=== PATIENT | female | born 1980 | race Caucasian/White ===

== ENCOUNTER 2020-12-08 08:47 | Emergency (ER) | payer OTHER, SELFPAY ==
--- NOTE | ~2020-12-08 | US_ITS ---
EXAMINATION: US VENOUS ULTRASOUND WITH DOPPLER LOWER EXTREMITY, LEFT CLINICAL INFORMATION: Pain and swelling. COMPARISON: None TECHNIQUE: Ultrasound of the deep veins is performed from the hip to the calf with compression sonography and color and pulse Doppler assessment. Spectral analysis with color-flow imaging is performed. FINDINGS: There is normal venous compression and respiratory variation and augmented flow. The visualized common femoral vein, superficial femoral vein, profunda femoral vein, popliteal vein, and the trifurcation region shows no evidence of deep venous thrombosis. There is no significant popliteal fossa cyst. If the patient's symptoms persist, followup ultrasound in 5 days 7 days might be of value to exclude proximal propagation from a non-visualized calf vein. US/US venous duplex LE LT IMPRESSION: No DVT demonstrated in the left lower extremity.
[2020-12-08 09:47] VITALS: BP 130/81; PULSE 75; RESP 18; TEMP 36.7; O2SAT 100; BMI 26.9
--- NOTE | 2020-12-08 10:19 | ED.EXTPRO ---
HPI - Extremity Problem General Chief complaint: Extremity Problem Stated complaint: lt leg swelling post vaccine Time Seen by Provider: 12/08/20 08:48 History of Present Illness HPI Narrative: Patient got COVID vaccine 10 days ago than a few days later started to develop pain mostly in the anterior right thigh but also some pain in the back of her leg both upper and lower, she has no difficulty breathing no fever no chills Related Data Allergies Allergy/AdvReac Type Severity Reaction Status Date / Time No Known Allergies Allergy Verified 12/08/20 09:47 [No Known Allergies*] PMFSH Social History Social History Advance Directives: No Advance Directives Information Provided: No Patient : No Physical Exam Vital Signs: Vital Signs: Last Vital Signs Temp 98.0 F 12/08/20 09:47 Pulse 75 12/08/20 09:47 Resp 18 12/08/20 09:47 BP 130/81 12/08/20 09:47 Pulse Ox 100 12/08/20 09:47 Body Mass Index 26.9 Discharge Plan Discharge Clinical Impression: Left leg pain Patient Disposition: Home, Self-Care Additional Instructions: Ultrasound test to rule out blood clot was normal there is no blood clot Exam showed normal pulse, normal nerve function normal skin no sign of any skin infection Return any time any worse condition or concerns Use Motrin or Tylenol as needed okay for all activity Stand Alone Forms: Work/School Release
== END 2020-12-08 10:29 | disposition home or self-care (01) ==
PROVIDERS: Emergency Provider Emergency Medicine; PCP Internal Medicine
DX: R60.0 Localized edema (principal); M79.605 Pain in left leg
CPT/HCPCS: 93971; 99283

== ENCOUNTER 2021-07-05 08:27 | Outpatient (REF) | payer OTHER, SELFPAY | END 2021-07-05 08:28 | disposition home or self-care (01) | LOC: HO.LAB 08:27 | PROVIDERS: Visit Provider Internal Medicine | DX: Z20.822 Contact with and (suspected) exposure to COVID-19 (principal) | CPT/HCPCS: C9803; U0003; U0005 ==

== ENCOUNTER 2021-11-23 15:51 | Outpatient (REF) | payer OTHER, SELFPAY ==
--- NOTE | ~2021-11-23 | MM_ITS ---
EXAMINATION: MM SCREENING DIGITAL BREAST TOMOSYNTHESIS, BILATERAL CLINICAL INFORMATION: Screening. Asymptomatic. No prior mammography. Age 41. No known family history breast cancer. The lifetime risk of breast cancer based on the Tyrer-Cuzick Model is 8%. COMPARISON: None (current study represents initial baseline exam). TECHNIQUE: Digital breast tomosynthesis is performed in both the craniocaudal and mediolateral oblique views along with computer-aided detection (CAD). Synthesized 2D images are generated from the tomosynthesis. FINDINGS: There are scattered areas of fibroglandular density (ACR BI-RADS breast composition Category b). There are no significant masses, abnormal calcifications, or other abnormalities. No architectural abnormality. Breast tissue composition borders on heterogeneously dense. There are bilateral incidental small low axillary nodes. The axilla and skin contours are unremarkable. MM/MM tomosynthesis screening BI IMPRESSION: No mammographic evidence of malignancy. ASSESSMENT: BI-RADS 2: Benign RECOMMENDATION: Routine annual mammography screening. This patient's information was entered into a reminder system with a target due date for their next mammogram.
== END 2021-11-23 15:52 | disposition home or self-care (01) ==
LOC: HO.MAMMO 15:51
PROVIDERS: Visit Provider Hospitalist
DX: Z12.31 Encounter for screening mammogram for malignant neoplasm of breast (principal)
CPT/HCPCS: 77063; 77067

== ENCOUNTER 2022-10-31 08:30 | Outpatient (REF) | payer OTHER, SELFPAY ==
[2022-10-31 11:43] LABS: Hematocrit 37.8 % (37.0-47.0); Hemoglobin 12.2 g/dl (12.0-16.0); Mean Corpuscular HGB Conc 32.3 g/dl (31.0-35.0); Mean Corpuscular Hemoglobin 27.5 pg (27.0-33.0); Mean Corpuscular Volume 85.1 fL (80.0-98.0); Mean Platelet Volume 9.7 fL (9.4-12.3); Platelet Count 254 X10*3/uL (160-400); Red Blood Count 4.44 X10*6/uL (4.20-5.50); White Blood Count 6.6 X10*3/uL (4.8-10.8)
[2022-10-31 12:21] LABS: Alanine Aminotransferase 17 U/L (0-31); Alkaline Phosphatase 38 U/L (39-117); Anion Gap 11 (12-20); Aspartate Amino Transferase 16 U/L (5-31); Bilirubin Total 0.4 mg/dL (0.0-1.0); Blood Urea Nitrogen 14 mg/dL (9-16); Calcium 8.5 mg/dL (8.4-10.2); Carbon Dioxide 24 mmol/L (22-29); Chloride 109 mmol/L (96-108); Cholesterol 155 mg/dL; Estimated Glomerular Filt Rate > 60; Glucose Fasting 86 mg/dL (60-99); HDL Cholesterol 48 mg/dL; LDL Cholesterol Calculated 99 mg/dl; Potassium 4.1 mmol/L (3.3-5.1); Sodium 140 mmol/L (135-145); Total Protein 6.4 g/dL (6.5-8.0); Triglycerides 40 mg/dL
[2022-10-31 12:39] LABS: TSH reflex Free T4 2.22 uIU/mL (0.32-4.0)
== END 2022-10-31 08:31 | disposition home or self-care (01) ==
LOC: HO.LAB 08:30
PROVIDERS: Visit Provider Hospitalist
DX: R10.30 Lower abdominal pain, unspecified (principal); R31.9 Hematuria, unspecified
CPT/HCPCS: 36415; 80053; 80061; 84443; 85027; 87086

== ENCOUNTER 2022-11-03 12:07 | Emergency (ER) | payer OTHER, SELFPAY ==
--- NOTE | ~2022-11-03 | CT_ITS ---
EXAMINATION: CT ABDOMEN AND PELVIS WITH CONTRAST CLINICAL INFORMATION: Abdominal pain COMPARISON: 02/05/2018 TECHNIQUE: Multidetector volumetric images were obtained from the superior aspect of the liver through the pubic symphysis following administration 85 mL of Omnipaque 350 intravenous contrast. Sagittal and coronal reformatted images were obtained on the technologist's workstation. Oral contrast: No This CT examination was performed using dose optimization techniques as appropriate, variously including the following: *Automated exposure control *Adjustment of mA and/or kV according to patient size (this includes techniques or standardized protocols for targeted exams where dose is matched to indication/reason for exam; i.e. extremities or head) *Use of iterative reconstruction technique DLP: 532 mGy-cm FINDINGS: LUNG BASES: The visualized lung bases are unremarkable. LIVER, GALLBLADDER, AND BILIARY TREE: The liver is normal in size, shape, and attenuation. No focal hepatic lesion or biliary ductal dilatation is present. The gallbladder is unremarkable with no evidence of radiopaque gallstones, gallbladder wall thickening, or obvious pericholecystic inflammatory changes. PANCREAS: Some fullness in the body the pancreas is noted. Similar to previous. SPLEEN: Unremarkable. ADRENAL GLANDS: Unremarkable. KIDNEYS AND URETERS: The kidneys are normal in size, shape, and attenuation. No hydronephrosis, hydroureter, or calculi seen. No perinephric stranding. BLADDER: Bladder is irregularly thick-walled. Appearance is similar to previous GASTROINTESTINAL TRACT: The bowel pattern is felt to be nonobstructing. The appendix is within normal limits. No suspicious fluid collection. ABDOMINAL WALL: No significant hernia is appreciated. LYMPH NODES: Mildly prominent iliac nodes are once again seen. No suspicious increase from previous. Mildly prominent mesenteric nodes. No bulky adenopathy. VASCULAR: Unremarkable. PELVIC VISCERA: Large uterine structure once again seen. Findings suggest possible fibroid change. Possible submucosal fibroid on the left. Polyp formation versus other cannot be excluded Mild cystic change in the ovaries. OSSEOUS STRUCTURES: Once again sclerotic change in the region of the SI joints consistent with sacroiliitis. No acute erosion or ankylosis. CT/CT abdomen pelvis w IV con IMPRESSION: There is no acute finding here. Enlarged probable fibroid uterus is noted measuring 10.3 x 9.1 x 10.4 cm. Enlarging compared to previous exam. Some filling defects within the canal are noted which could represent submucosal fibroids. Polyp formation or other endometrial growth cannot be excluded. Recommend gynecologic consultation. Once again irregular thick-walled bladder. Cystitis would be a consideration. The bowel pattern is felt to be nonobstructing. There is no free fluid. Other findings are as noted above. Fleischner guidelines were followed.
--- NOTE | ~2022-11-03 | US_ITS ---
EXAMINATION: US PELVIS CLINICAL INFORMATION: Abdominal pain. CT nodes enlarged uterus with probable fibroids. COMPARISON: CT abdomen and pelvis 11/03/2022 and 02/05/2018; pelvic ultrasound 02/05/2018. TECHNIQUE: Ultrasound of the pelvis is performed using both transabdominal and transvaginal transducers along with Doppler. Transvaginal imaging is performed due to inadequate visualization transabdominally. FINDINGS: Uterus: The uterus is anteverted and measures 14.0 x 5.8 x 8.3 cm. Volume 352 mL. Prior measurements ultrasound 02/05/2018: 12.1 x 4.3 x 7.5 cm. Volume 203 mL. There is heterogeneous myometrial echotexture with numerous fibroids consistent with the CT. They range from subserous to submucosal, largest 2 in each measure around 3 cm. There is no fluid in uterine cavity. The endometrial thickness is difficult to measure given the fibroids, suspect thickness around 1.6 cm. It would be difficult to discern superimposed endometrial polyp. Adnexa: The ovaries are normal in size. There is no adnexal mass or pelvic ascites. Right ovary measures 3.8 x 1.4 x 1.9 cm (volume 5.3 mL). There is incidental dominant follicle measuring under 1.5 cm. Left ovary measures 2.3 x 1.6 x 1.8 cm (volume 3.5 cm. US/US pelvic and transvaginal IMPRESSION: -Enlarged uterus with numerous fibroids, increased from prior imaging 2017. -Ovaries normal in size. No adnexal mass or pelvic ascites. -Routine nonemergent MRI pelvis without and with gadolinium contrast would be helpful to further characterize the fibroids and endometrium.
--- NOTE | 2022-11-03 12:08 | ED_ITS ---
HPI - General Adult General Chief complaint: Abdominal Pain <BAN Nelson Last Filed: 11/03/22 12:13> Stated complaint: abd pain <BAN Nelson Last Filed: 11/03/22 12:13> Time Seen by Provider: 11/03/22 12:40 <BAN Nelson Last Filed: 11/03/22 12:13> Source: patient, EMS, RN notes reviewed and old records reviewed <BAN Still Last Filed: 11/03/22 18:07> Mode of arrival: ambulatory <BAN Still Last Filed: 11/03/22 18:07> History of Present Illness HPI narrative: 42-year-old female with a past medical history tubal ligation, presenting to the ED complaining of intermittent epigastric abdominal pain radiating to LLQ & RLQ x2 weeks. Admits to mild dysuria. Reports initial diarrhea which has resolved. Denies fever, chills, nausea/vomiting, hematuria, vaginal bleeding/discharge <BAN Still - Last Filed: 11/03/22 18:07> Onset (ago): week(s) <BAN Still Last Filed: 11/03/22 18:07> Related Data Home medications: Home Medications Medication Instructions Recorded Confirmed No Known Home Meds 10/31/22 <BAN Nelson Last Filed: 11/03/22 12:13> Allergies/adverse reactions: Allergies Allergy/AdvReac Type Severity Reaction Status Date / Time No Known Allergies Allergy Verified 11/03/22 12:11 [No Known Allergies*] <BAN Nelson Last Filed: 11/03/22 12:13> Review of Systems Review of Systems: Constitutional: No Fever, No Chills, No Fatigue, No Malaise ENT/Mouth: No Hearing loss, No Ear Pain, No sore throat, No Rhinorrhea, No Swallowing Difficulty Eyes: No Eye Pain, No Swelling, No Redness, No Foreign Body, No Discharge, No Vision Changes Cardiovascular: No Chest Pain, No SOB, No Edema, No Palpitations Respiratory: No Cough, No Sputum, No Dyspnea Gastrointestinal: No Nausea, No Vomiting, + Diarrhea (resolved), No Constipation, + Abdominal pain, No Hematochezia, No Melena Genitourinary: No irregular bleeding, + Dysuria, No Urinary Frequency, No Hematuria, No Urinary Incontinence/retention, No Flank Pain Musculoskeletal: No joint pain, No Myalgias, No Joint Swelling Skin: No Skin Lesions, No rash Neuro: No Weakness, No Dizziness, No Headache <BAN Still - Last Filed: 11/03/22 18:07> Yes all other systems are reviewed and are negative <BAN Still - Last Filed: 11/03/22 18:07> Constitutional: Constitutional: Reports as per HPI <BAN Still - Last Filed: 11/03/22 18:07> [facility] Past Medical History Attestation statement: The following information was validated with the patient. <BAN Still - Last Filed: 11/03/22 18:07> Medical History: Medical History No pertinent past medical history <BAN Nelson - Last Filed: 11/03/22 12:13> Surgical History: Surgical History Hx of tubal ligation <BAN Nelson - Last Filed: 11/03/22 12:13> Family History Family History: Family History Mother Tachycardia Father Lung cancer Brother HTN (hypertension) <BAN Nelson - Last Filed: 11/03/22 12:13> Social History Social History: Social History Household Members: Spouse and Children Housing: Apartment Alcohol intake: never Patient Tobacco Use Status: Never used Tobacco Advance Directives: No Advance Directives Information Provided: No <BAN Nelson Last Filed: 11/03/22 12:13> Physical Exam ED Vital Signs: Vital Signs - 24 hr 11/03/22 12:12 Temperature 98 F Pulse Rate 85 Respiratory Rate 18 Blood Pressure 150/90 H Pulse Oximetry 100 Oxygen Delivery Method Room Air BMI result Body Mass Index 27.1 <BAN Nelson - Last Filed: 11/03/22 12:13> Vital Signs - 24 hr 11/03/22 12:12 Temperature 98 F Pulse Rate 85 Respiratory Rate 18 Blood Pressure 150/90 H Pulse Oximetry 100 Oxygen Delivery Method Room Air BMI result Body Mass Index 27.1 <BAN Still - Last Filed: 11/03/22 18:07> Const General: cooperative, healthy appearing and no acute distress <BAN Still - Last Filed: 11/03/22 18:07> Orientation/consciousness: patient oriented x3 <BAN Still - Last Filed: 11/03/22 18:07> Limitations: no limitations <BAN Still - Last Filed: 11/03/22 18:07> HENMT Head: Yes normal to inspection and Yes atraumatic <BAN Still - Last Filed: 11/03/22 18:07> Ears: hearing grossly normal bilaterally <BAN Still - Last Filed: 11/03/22 18:07> General nose exam: Normal external nose present <BNA Still - Last Filed: 11/03/22 18:07> Face and sinus: Yes normal facial exam <BAN Still - Last Filed: 11/03/22 18:07> Eyes General: appearance normal, both eyes and all related structures <BAN Still - Last Filed: 11/03/22 18:07> EOM: EOMs intact bilaterally <BAN Still - Last Filed: 11/03/22 18:07> Neck Neck: Yes normal visual inspection and Yes no meningeal signs <BAN Still - Last Filed: 11/03/22 18:07> Resp Effort & Inspection: normal respiratory effort and no respiratory distress <BAN Still - Last Filed: 11/03/22 18:07> Auscultation: clear to auscultation bilaterally <BAN Still - Last Filed: 11/03/22 18:07> Cardio Rate: regular rate <BAN Still - Last Filed: 11/03/22 18:07> Heart sounds: S1 normal heart sound present and S2 normal heart sound present <Isis Avilez PA - Last Filed: 11/03/22 18:07> GI Inspection: Yes normal to inspection <Isis Fatmata PA - Last Filed: 11/03/22 18:07> Palpation (GI): Soft to palpation, Tenderness to palpation present (GI) in the RLQ; with no rebound tenderness, no guarding and not rigid <Isis Avilez PA - Last Filed: 11/03/22 18:07> General: Yes no CVA tenderness <Isis Poulrobertot PA - Last Filed: 11/03/22 18:07> Back/Spine/Pelvis Back: no CVA tenderness <Isis Poulrobertot PA - Last Filed: 11/03/22 18:07> Skin Rashes: no rashes <Isis Avilez PA - Last Filed: 11/03/22 18:07> Wounds: no wounds <Isis Avilez PA - Last Filed: 11/03/22 18:07> Neuro General: patient oriented x3, tone normal and no meningeal signs <Isis Avilez PA - Last Filed: 11/03/22 18:07> Gait exam (Neuro): Normal gait present <Isis Avilez PA - Last Filed: 11/03/22 18:07> Extrem General: Yes normal to inspection <Isis Avilez PA - Last Filed: 11/03/22 18:07> Course Course Course Narrative: This is an RME: Additional HPI, ROS, PE not included below will be deferred to primary provider. 42 year old female presents with epigastric pain that radiates to her lower abdomen.Patient is severely tender in the RLQ to palpation. Patient denies associated fever, fatigue, malaise, chills. PE: RLQ tenderness Plan: Basic labs, UA, imaging <Charmaine Mayen PA - Last Filed: 11/03/22 12:13> This is an RME: Additional HPI, ROS, PE not included below will be deferred to primary provider. 42 year old female presents with epigastric pain that radiates to her lower abdomen.Patient is severely tender in the RLQ to palpation. Patient denies associated fever, fatigue, malaise, chills. PE: RLQ tenderness Plan: Basic labs, UA, imaging -1445--no leukocytosis. Labs otherwise unremarkable. negative. UA negative CT abdomen pelvis w IV con IMPRESSION: There is no acute finding here. ? Enlarged probable fibroid uterus is noted measuring 10.3 x 9.1 x 10.4 cm. Enlarging compared to previous exam. Some filling defects within the canal are noted which could represent submucosal fibroids. Polyp formation or other endometrial growth cannot be excluded. Recommend gynecologic consultation. ? Once again irregular thick-walled bladder. Cystitis would be a consideration. ? The bowel pattern is felt to be nonobstructing. There is no free fluid. ? Other findings are as noted above. ? Fleischner guidelines were followed. > will obtain pelvic ultrasound for further eval 1655--US pelvic and transvaginal IMPRESSION: -Enlarged uterus with numerous fibroids, increased from prior imaging 2018. ? -Ovaries normal in size.? No adnexal mass or pelvic ascites. ? -Routine nonemergent MRI pelvis without and with gadolinium contrast would be helpful to further characterize the fibroids and endometrium. >>Results discussed with patient including worrisome signs and symptoms and strict return precautions, and when to return to the emergency department. They verbalized understanding and feel safe for discharge at this time. <BAN Still - Last Filed: 11/03/22 18:07> Medications Administered Discontinued Medications Generic Name Dose Route Start Last Admin Trade Name Freq PRN Reason Stop Dose Admin Sodium Chloride 1,000 mls @ 999 mls/hr 11/03/22 13:00 11/03/22 15:18 Ns IV 11/03/22 14:00 Infused .Q1H1M OZZY Infusion Iohexol 100 ml 11/03/22 13:06 11/03/22 13:07 Iohexol 350 Mg/Ml 100 Ml Infus..Btl IV 11/03/22 13:07 85 ml ONCE ONE Administration <BAN Nelson - Last Filed: 11/03/22 12:13> Medications Administered Discontinued Medications Generic Name Dose Route Start Last Admin Trade Name Freq PRN Reason Stop Dose Admin Sodium Chloride 1,000 mls @ 999 mls/hr 11/03/22 13:00 11/03/22 15:18 Ns IV 11/03/22 14:00 Infused .Q1H1M OZZY Infusion Iohexol 100 ml 11/03/22 13:06 11/03/22 13:07 Iohexol 350 Mg/Ml 100 Ml Infus..Btl IV 11/03/22 13:07 85 ml ONCE ONE Administration <BAN Still - Last Filed: 11/03/22 18:07> Medical Decision Making Medical Decision Making MDM Narrative: 42-year-old female with a past medical history tubal ligation, presenting to the ED complaining of intermittent epigastric abdominal pain radiating to LLQ & RLQ x2 weeks. On exam vital signs stable, NAD, nontoxic appearing, RLQ tenderness noted, no rebound or guarding, no CVAT. Concern for appendicitis vs colitis/diverticulitis vs GERD/gastritis. Lower suspicion for ovarian torsi on/pyelo. Rule out UTI. Plan: Labs, UA, CT AP, IVF, pain control Please refer to course for remaining clinical decision making, interpretation of labs/imaging results, and discussions with consultants and/or family members. <BAN Still - Last Filed: 11/03/22 18:07> Differential Diagnosis Differential Diagnoses: The differential diagnosis associated with the presentation includes <BAN Still Last Filed: 11/03/22 18:07> As above <BAN Still - Last Filed: 11/03/22 18:07> Admission/Observation Consideration of admission/observation: Escalation of care including admission/observation considered <BAN Still Last Filed: 11/03/22 18:07> Lab Data [facility] Lab Attestation statement: I reviewed the patient's lab results. <BAN Still Last Filed: 11/03/22 18:07> Result Diagrams: 11/03/22 12:20 11/03/22 12:20 <BAN Nelson Last Filed: 11/03/22 12:13> Labs: Lab Results 11/03/22 11/03/22 11/03/22 Range/Units 12:20 12:20 12:20 WBC 7.8 (4.8-10.8) X10*3/uL RBC 4.43 (4.20-5.50) X10*6/uL Hgb 12.3 (12.0-16.0) g/dl Hct 38.0 (37.0-47.0) % MCV 85.8 (80.0-98.0) fL MCH 27.8 (27.0-33.0) pg MCHC 32.4 (31.0-35.0) g/dl RDW 15.8 (11.0-16.0) % Plt Count 277 (160-400) X10*3/uL MPV 9.1 L (9.4-12.3) fL Immature Gran % (Auto) 0.1 (0.0-0.4) % Neut % (Auto) 57.7 (45-73) % Lymph % (Auto) 33.3 (20-40) % [place] % (Auto) 6.8 (2-11) % Eos % (Auto) 1.5 (0-4) % Baso % (Auto) 0.6 (0-2) % Lymph # (Auto) 2.6 (1.2-4.9) X10*3/uL [place] # (Auto) 0.5 (0.1-1.2) X10*3/uL Eos # (Auto) 0.1 (0.0-0.4) X10*3/uL Baso # (Auto) 0.1 (0.0-0.2) X10*3/uL Abs Immat Gran (auto) 0.01 (0.00-0.03) X10*3/uL Absolute Neuts (auto) 4.5 (2.0-8.3) x10*3/uL Absolute Nucleated RBC 0.000 (0.0-0.012) X10*3/uL Nucleated RBC % (auto) 0.0 (0.0-0.2) /100WBC Sodium 137 (135-145) mmol/L Potassium 4.5 (3.3-5.1) mmol/L Chloride 108 (96-108) mmol/L Carbon Dioxide 26 (22-29) mmol/L Anion Gap 8 L (12-20) BUN 12 (9-16) mg/dL Creatinine 0.79 (0.5-1.4) mg/dL Estim Creat Clear Calc 82.5 Estimated GFR > 60 Random Glucose 86 (60-115) mg/dL Calcium 8.5 (8.4-10.2) mg/dL Magnesium 2.1 (1.6-2.6) mg/dL Total Bilirubin 0.3 (0.0-1.0) mg/dL AST 21 (5-31) U/L ALT 19 (0-31) U/L Alkaline Phosphatase 45 (39-117) U/L Total Protein 6.6 (6.5-8.0) g/dL Albumin 3.9 (3.5-5.0) g/dL Lipase 51 (8-78) U/L Beta HCG, Quant < 2 mIU/mL Urine Color Urine Appearance Urine pH (5.0-9.0) Ur Specific [place] (1.005-1.025) Urine Protein (Neg-Trace) mg/dL Urine Glucose (UA) (Negative) mg/dL Urine Ketones (Negative) mg/dL Urine Blood (Negative) Urine Nitrite (Negative) Ur Leukocyte Esterase (Negative) 11/03/22 Range/Units 13:08 WBC (4.8-10.8) X10*3/uL RBC (4.20-5.50) X10*6/uL Hgb (12.0-16.0) g/dl Hct (37.0-47.0) % MCV (80.0-98.0) fL MCH (27.0-33.0) pg MCHC (31.0-35.0) g/dl RDW (11.0-16.0) % Plt Count (160-400) X10*3/uL MPV (9.4-12.3) fL Immature Gran % (Auto) (0.0-0.4) % Neut % (Auto) (45-73) % Lymph % (Auto) (20-40) % [place] % (Auto) (2-11) % Eos % (Auto) (0-4) % Baso % (Auto) (0-2) % Lymph # (Auto) (1.2-4.9) X10*3/uL [place] # (Auto) (0.1-1.2) X10*3/uL Eos # (Auto) (0.0-0.4) X10*3/uL Baso # (Auto) (0.0-0.2) X10*3/uL Abs Immat Gran (auto) (0.00-0.03) X10*3/uL Absolute Neuts (auto) (2.0-8.3) x10*3/uL Absolute Nucleated RBC (0.0-0.012) X10*3/uL Nucleated RBC % (auto) (0.0-0.2) /100WBC Sodium (135-145) mmol/L Potassium (3.3-5.1) mmol/L Chloride (96-108) mmol/L Carbon Dioxide (22-29) mmol/L Anion Gap (12-20) BUN (9-16) mg/dL Creatinine (0.5-1.4) mg/dL Estim Creat Clear Calc Estimated GFR Random Glucose (60-115) mg/dL Calcium (8.4-10.2) mg/dL Magnesium (1.6-2.6) mg/dL Total Bilirubin (0.0-1.0) mg/dL AST (5-31) U/L ALT (0-31) U/L Alkaline Phosphatase (39-117) U/L Total Protein (6.5-8.0) g/dL Albumin (3.5-5.0) g/dL Lipase (8-78) U/L Beta HCG, Quant mIU/mL Urine Color Yellow Urine Appearance Clear Urine pH 7.5 (5.0-9.0) Ur Specific [place] <= 1.005 (1.005-1.025) Urine Protein Negative (Neg-Trace) mg/dL Urine Glucose (UA) Negative (Negative) mg/dL Urine Ketones Negative (Negative) mg/dL Urine Blood Negative (Negative) Urine Nitrite Negative (Negative) Ur Leukocyte Esterase Negative (Negative) <BAN Nelson - Last Filed: 11/03/22 12:13> Lab Results 11/03/22 11/03/22 11/03/22 Range/Units 12:20 12:20 12:20 WBC 7.8 (4.8-10.8) X10*3/uL RBC 4.43 (4.20-5.50) X10*6/uL Hgb 12.3 (12.0-16.0) g/dl Hct 38.0 (37.0-47.0) % MCV 85.8 (80.0-98.0) fL MCH 27.8 (27.0-33.0) pg MCHC 32.4 (31.0-35.0) g/dl RDW 15.8 (11.0-16.0) % Plt Count 277 (160-400) X10*3/uL MPV 9.1 L (9.4-12.3) fL Immature Gran % (Auto) 0.1 (0.0-0.4) % Neut % (Auto) 57.7 (45-73) % Lymph % (Auto) 33.3 (20-40) % [place] % (Auto) 6.8 (2-11) % Eos % (Auto) 1.5 (0-4) % Baso % (Auto) 0.6 (0-2) % Lymph # (Auto) 2.6 (1.2-4.9) X10*3/uL [place] # (Auto) 0.5 (0.1-1.2) X10*3/uL Eos # (Auto) 0.1 (0.0-0.4) X10*3/uL Baso # (Auto) 0.1 (0.0-0.2) X10*3/uL Abs Immat Gran (auto) 0.01 (0.00-0.03) X10*3/uL Absolute Neuts (auto) 4.5 (2.0-8.3) x10*3/uL Absolute Nucleated RBC 0.000 (0.0-0.012) X10*3/uL Nucleated RBC % (auto) 0.0 (0.0-0.2) /100WBC Sodium 137 (135-145) mmol/L Potassium 4.5 (3.3-5.1) mmol/L Chloride 108 (96-108) mmol/L Carbon Dioxide 26 (22-29) mmol/L Anion Gap 8 L (12-20) BUN 12 (9-16) mg/dL Creatinine 0.79 (0.5-1.4) mg/dL Estim Creat Clear Calc 82.5 Estimated GFR > 60 Random Glucose 86 (60-115) mg/dL Calcium 8.5 (8.4-10.2) mg/dL Magnesium 2.1 (1.6-2.6) mg/dL Total Bilirubin 0.3 (0.0-1.0) mg/dL AST 21 (5-31) U/L ALT 19 (0-31) U/L Alkaline Phosphatase 45 (39-117) U/L Total Protein 6.6 (6.5-8.0) g/dL Albumin 3.9 (3.5-5.0) g/dL Lipase 51 (8-78) U/L Beta HCG, Quant < 2 mIU/mL Urine Color Urine Appearance Urine pH (5.0-9.0) Ur Specific [place] (1.005-1.025) Urine Protein (Neg-Trace) mg/dL Urine Glucose (UA) (Negative) mg/dL Urine Ketones (Negative) mg/dL Urine Blood (Negative) Urine Nitrite (Negative) Ur Leukocyte Esterase (Negative) 11/03/22 Range/Units 13:08 WBC (4.8-10.8) X10*3/uL RBC (4.20-5.50) X10*6/uL Hgb (12.0-16.0) g/dl Hct (37.0-47.0) % MCV (80.0-98.0) fL MCH (27.0-33.0) pg MCHC (31.0-35.0) g/dl RDW (11.0-16.0) % Plt Count (160-400) X10*3/uL MPV (9.4-12.3) fL Immature Gran % (Auto) (0.0-0.4) % Neut % (Auto) (45-73) % Lymph % (Auto) (20-40) % [place] % (Auto) (2-11) % Eos % (Auto) (0-4) % Baso % (Auto) (0-2) % Lymph # (Auto) (1.2-4.9) X10*3/uL [place] # (Auto) (0.1-1.2) X10*3/uL Eos # (Auto) (0.0-0.4) X10*3/uL Baso # (Auto) (0.0-0.2) X10*3/uL Abs Immat Gran (auto) (0.00-0.03) X10*3/uL Absolute Neuts (auto) (2.0-8.3) x10*3/uL Absolute Nucleated RBC (0.0-0.012) X10*3/uL Nucleated RBC % (auto) (0.0-0.2) /100WBC Sodium (135-145) mmol/L Potassium (3.3-5.1) mmol/L Chloride (96-108) mmol/L Carbon Dioxide (22-29) mmol/L Anion Gap (12-20) BUN (9-16) mg/dL Creatinine (0.5-1.4) mg/dL Estim Creat Clear Calc Estimated GFR Random Glucose (60-115) mg/dL Calcium (8.4-10.2) mg/dL Magnesium (1.6-2.6) mg/dL Total Bilirubin (0.0-1.0) mg/dL AST (5-31) U/L ALT (0-31) U/L Alkaline Phosphatase (39-117) U/L Total Protein (6.5-8.0) g/dL Albumin (3.5-5.0) g/dL Lipase (8-78) U/L Beta HCG, Quant mIU/mL Urine Color Yellow Urine Appearance Clear Urine pH 7.5 (5.0-9.0) Ur Specific [place] <= 1.005 (1.005-1.025) Urine Protein Negative (Neg-Trace) mg/dL Urine Glucose (UA) Negative (Negative) mg/dL Urine Ketones Negative (Negative) mg/dL Urine Blood Negative (Negative) Urine Nitrite Negative (Negative) Ur Leukocyte Esterase Negative (Negative) <BAN Still - Last Filed: 11/03/22 18:07> Radiology Impression Discussion of test interpretation with radiology: I have reviewed the radiologist's reading. <BAN Still - Last Filed: 11/03/22 18:07> External Record Review External record reviewed: Inpatient record, Office record, Outpatient record, Prior outpatient labs, Prior outpatient radiology, Primary care record and Outside ED record <BAN Still - Last Filed: 11/03/22 18:07> Discharge Plan Discharge Clinical Impression: Uterine fibroid <BAN Nelson - Last Filed: 11/03/22 12:13> Patient Disposition: Home, Self-Care <BAN Nelson - Last Filed: 11/03/22 12:13> Instructions: Uterine Artery Embolization for Fibroids (DC) <BAN Nelson - Last Filed: 11/03/22 12:13> Additional Instructions: Your ultrasound appreciates numerous uterine fibroids which are increasing in size from prior imaging in 2018 WE RECOMMENDED NONEMERGENT MRI OF THE PELVIS WITH AND WITHOUT CONTRAST TO FURTHER EVALUATE THESE FIBROIDS You need to follow-up with your PCP If her abdominal pain persists or worsens/becomes unbearable, you are unable to eat or drink have persistent nausea/vomiting or fever return to the emergency department Your blood work was reassuring <BAN Nelson - Last Filed: 11/03/22 12:13> Prescriptions: No Action No Known Home Meds <BAN Nelson - Last Filed: 11/03/22 12:13> Referrals: [facility] [place] [facility] [Provider Group] Zonia Hawley NP [Primary Care Provider] - <BAN Nelson - Last Filed: 11/03/22 12:13> Stand Alone Forms: Work/School Release <BAN Nelson - Last Filed: 11/03/22 12:13> Interventions: ED Discharge Assessment Last Done: 11/03/22 17:14 <BAN Nelson - Last Filed: 11/03/22 12:13> Discharge Date/Time: 11/03/22 17:14 <BAN Nelson - Last Filed: 11/03/22 12:13>
[2022-11-03 12:12] VITALS: BP 150/90; PULSE 85; RESP 18; TEMP 36.6; O2SAT 100; BMI 27.1
[2022-11-03 12:27] LABS: MANUAL DIFF FLAG NO
[2022-11-03 12:30] LABS: Basophils Absolute Auto 0.1 X10*3/uL (0.0-0.2); Basophils Percent Auto 0.6 % (0-2); Eosinophils Absolute Auto 0.1 X10*3/uL (0.0-0.4); Eosinophils Percent Auto 1.5 % (0-4); Hemoglobin 12.3 g/dl (12.0-16.0); Imm Gran Abs Auto 0.01 X10*3/uL (0.00-0.03); Imm Gran Pct Auto 0.1 % (0.0-0.4); Lymphocytes Absolute Auto 2.6 X10*3/uL (1.2-4.9); Lymphocytes Percent Auto 33.3 % (20-40); Mean Corpuscular HGB Conc 32.4 g/dl (31.0-35.0); Mean Corpuscular Hemoglobin 27.8 pg (27.0-33.0); Mean Corpuscular Volume 85.8 fL (80.0-98.0); Mean Platelet Volume 9.1 fL (9.4-12.3); Monocytes Absolute Auto 0.5 X10*3/uL (0.1-1.2); Monocytes Percent Auto 6.8 % (2-11); Neutrophils Absolute Auto 4.5 x10*3/uL (2.0-8.3); Neutrophils Percent Auto 57.7 % (45-73); Platelet Count 277 X10*3/uL (160-400); Red Blood Count 4.43 X10*6/uL (4.20-5.50); Red Cell Distribution Width 15.8 % (11.0-16.0); White Blood Count 7.8 X10*3/uL (4.8-10.8)
[2022-11-03 12:53] LABS: HCG Quantitative < 2 mIU/mL
[2022-11-03 12:55] LABS: Alanine Aminotransferase 19 U/L (0-31); Albumin Level 3.9 g/dL (3.5-5.0); Alkaline Phosphatase 45 U/L (39-117); Aspartate Amino Transferase 21 U/L (5-31); Bilirubin Total 0.3 mg/dL (0.0-1.0); Blood Urea Nitrogen 12 mg/dL (9-16); Calcium 8.5 mg/dL (8.4-10.2); Carbon Dioxide 26 mmol/L (22-29); Chloride 108 mmol/L (96-108); Creatinine Clr Calc Pharmacy 82.5; Estimated Glomerular Filt Rate > 60; Glucose Random 86 mg/dL (60-115); Lipase 51 U/L (8-78); Magnesium 2.1 mg/dL (1.6-2.6); Potassium 4.5 mmol/L (3.3-5.1); Sodium 137 mmol/L (135-145); Total Protein 6.6 g/dL (6.5-8.0)
[2022-11-03 12:56] LABS: Anion Gap 8 (12-20)
[2022-11-03] MEDS: 0.9 % Sodium Chloride 1,000 ML 999 ML IV (13:04)
[2022-11-03] MEDS: iohexoL 350 MG/ML 100 ML INFUS..BTL IV (13:07)
[2022-11-03 13:15] LABS: Appearance Urine Clear; Color Urine Yellow; Glucose Urine UA Negative (Negative); Leukocyte Esterase Urine Negative (Negative); Nitrite Urine Negative (Negative); PH 7.5 (5.0-9.0); Specific Gravity - Urine <= 1.005 (1.005-1.025); Urine Blood Negative (Negative); Urine Ketones Negative (Negative); Urine Protein Negative (Neg-Trace)
--- NOTE | 2022-11-03 13:53 | PC.NURSE ---
ct scan taken, 1L NS infusing per orders, pt given warm blankets, call [facility] within reach [facility]
== END 2022-11-03 17:14 | disposition home or self-care (01) ==
PROVIDERS: Physician Assistant; Emergency Provider Emergency Medicine; PCP Hospitalist
DX: D25.0 Submucous leiomyoma of uterus (principal); D25.2 Subserosal leiomyoma of uterus; R10.30 Lower abdominal pain, unspecified; N88.8 Other specified noninflammatory disorders of cervix uteri
CPT/HCPCS: 36415; 74177; 76830; 76856; 80053; 81003; 83690; 83735; 84702; 85025; 96360; 96361; 99284; Q9967

== ENCOUNTER 2022-11-15 10:42 | Outpatient (REF) | payer OTHER, SELFPAY ==
[2022-11-16 23:33] LABS: HPV mRNA E6/E7 rflx Not Detected (Not Detected)
== END 2022-11-15 10:43 | disposition home or self-care (01) ==
LOC: HO.LNP 10:42
PROVIDERS: PCP Hospitalist; Visit Provider Obstetrics & Gynecology
DX: D25.9 Leiomyoma of uterus, unspecified (principal); N93.9 Abnormal uterine and vaginal bleeding, unspecified
CPT/HCPCS: 87624; 88142; 99202

== ENCOUNTER 2022-11-15 11:25 | Outpatient (REF) | payer OTHER, SELFPAY ==
[2022-11-15 13:22] LABS: Mean Corpuscular HGB Conc 31.6 g/dl (31.0-35.0); Mean Corpuscular Hemoglobin 27.1 pg (27.0-33.0); Mean Corpuscular Volume 85.8 fL (80.0-98.0); Mean Platelet Volume 9.6 fL (9.4-12.3); Platelet Count 261 X10*3/uL (160-400); Red Blood Count 4.43 X10*6/uL (4.20-5.50); White Blood Count 5.8 X10*3/uL (4.8-10.8)
[2022-11-15 14:37] LABS: HCG Quantitative < 2 mIU/mL; TSH reflex Free T4 1.42 uIU/mL (0.32-4.0)
[2022-11-15 14:45] LABS: CT PCR NOT DETECTED (Not Detect.); NG PCR NOT DETECTED (Not Detect.)
[2022-11-17 08:29] LABS: Prolactin 7.1 ng/mL
== END 2022-11-15 11:26 | disposition home or self-care (01) ==
LOC: HO.LAB 11:25
PROVIDERS: PCP Hospitalist; Visit Provider Obstetrics & Gynecology
DX: N93.9 Abnormal uterine and vaginal bleeding, unspecified (principal); Z20.2 Contact with and (suspected) exposure to infections with a predominantly sexual mode of transmission
CPT/HCPCS: 0353U; 36415; 84146; 84443; 84702; 85027

== ENCOUNTER 2022-12-19 12:35 | Outpatient (REF) | payer OTHER, SELFPAY | END 2022-12-19 12:36 | disposition home or self-care (01) | LOC: HO.LNP 12:35 | PROVIDERS: PCP Hospitalist; Visit Provider Obstetrics & Gynecology | DX: N93.9 Abnormal uterine and vaginal bleeding, unspecified (principal) | CPT/HCPCS: 58100; 81025; 88305 ==

== ENCOUNTER 2022-12-27 13:17 | Outpatient (REF) | payer OTHER, SELFPAY ==
--- NOTE | ~2022-12-27 | MM_ITS ---
EXAMINATION: MM SCREENING DIGITAL BREAST TOMOSYNTHESIS, BILATERAL CLINICAL INFORMATION: Screening. Asymptomatic. The lifetime risk of breast cancer based on the Tyrer-Cuzick Model is 8%. COMPARISON: Mammography: 11/23/2021 (baseline). TECHNIQUE: Digital breast tomosynthesis is performed in both the craniocaudal and mediolateral oblique views along with computer-aided detection (CAD). Synthesized 2D images are generated from the tomosynthesis. FINDINGS: There are scattered areas of fibroglandular density (ACR BI-RADS breast composition Category b). There are no significant masses, abnormal calcifications, or other abnormalities. Parenchymal pattern is similar to prior baseline exam. There is no developing density or architectural abnormality. The axilla and skin contours are unremarkable. No significant changes. MM/MM tomosynthesis screening BI IMPRESSION: No mammographic evidence of malignancy. ASSESSMENT: BI-RADS 1: Negative RECOMMENDATION: Routine annual mammography screening. This patient's information was entered into a reminder system with a target due date for their next mammogram.
== END 2022-12-27 13:18 | disposition home or self-care (01) ==
LOC: HO.MAMMO 13:17
PROVIDERS: PCP Hospitalist; Visit Provider Obstetrics & Gynecology
DX: Z12.31 Encounter for screening mammogram for malignant neoplasm of breast (principal)
CPT/HCPCS: 77063; 77067

== ENCOUNTER → 2023-01-12 08:46 | Outpatient (BNVA) | payer OTHER, SELFPAY | PROVIDERS: PCP Hospitalist; Visit Provider Obstetrics & Gynecology | DX: N93.9 Abnormal uterine and vaginal bleeding, unspecified (principal); D25.9 Leiomyoma of uterus, unspecified | CPT/HCPCS: 99212 ==

== ENCOUNTER 2023-01-17 13:05 | Outpatient (AMB) | payer OTHER, SELFPAY ==
--- NOTE | 2023-01-17 13:02 | MHC.PC.OV ---
Vital Signs 01/17/23 13:14 Height 5 ft 2 in Weight 153 lb 2 oz BMI 28.0 BP 110/64 Blood Pressure Location Rt brachial Position Sitting Respiration 12 Pulse 72 Pulse Source Pulse Oximeter Temp 98.3 F Temp Source Temporal Artery Scan Pulse Oximetry (%) 99 Oxygen Delivery Method Room Air Intake Visit Reasons: [place]/ 7-6/Right rib pain Intake Note: Patient states that shes been to ER and they haven't found anything wrong. Patient has fibroids and has been experiencing pain. Patient states that she went [facility] and was told that she will be having a IUD put in. Patient states that shes here because she suppose to start work tomorrow but with everything new going on and her job requiring her to due heavy lifting she would like to extend her Medical Leave. Director Gift Required: No Accompanied by: Self / Same As Patient Allergies No Known Allergies [No Known Allergies*] Allergy (Verified 01/17/23 13:42) Medication List - Last Reconciled 01/17/23 by Christian Frye CNP No Known Home Meds Tobacco use date assessed: 10/31/22 Dental Screening Dental Screen Date: 01/17/23 Did you have a dental visit in the last 12 months?: No Did you have a dental problem in the last 6 months where you did not have access to dental care?: No HPI HPI Comments History of Present Illness Details 42-year-old female presents for abdominal pain related to uterine fibroids follow-up She is followed by Gynecology. She notes the plan is to have an IUD inserted She was placed on light duty by PCP for 2-4 weeks. 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 which intensifies her stomach pain PFS Medical History (Updated 01/17/23 @ 13:24 by Justina Hardwick MA) Fibroids No pertinent past medical history Surgical History Hx of tubal ligation Family History Mother Tachycardia Father Lung cancer Brother HTN (hypertension) Social History (Updated 01/17/23 @ 13:29 by Justina Hardwick MA) Household Members: Spouse and Children Housing: House Alcohol intake: never Patient Tobacco Use Status: Never used Tobacco e-Cigarette/Vaping Use: Never Used Use of substances other than those prescribed or required for medical reasons: No Currently Displaying Signs/Symptoms of Drug Intoxication Withdrawal: No Any prior treatment program specific to substance use: No Have you been hit, kicked, punched, or otherwise hurt by someone within the past year? If so, by whom?: No Do you feel safe in your current relationship?: Yes Is there a partner from a previous relationship who is making you feel unsafe now?: No Are you made to feel afraid or neglected: No Special laurie needs: No Are you DNR?: No Advance Directives: No Healthcare Proxy: No Access to Firearms: No Do you have thoughts of harming others: None Do you have a plan to hurt others: No Plan Do you have the means to hurt others: No Recently lost weight without trying: No Eating poorly because of decreased appetite: No Nutrition Risks: No Nutritional Risk Patient : No : No Visits dentist regularly: No Poor oral hygiene: No service: No Current occupational status: employed Current occupation: employee training specialist/ welfare case worker Current occupational exposures/hazards: No Sexually active: Yes Sexual orientation: Straight/Heterosexual Gender identity: Female Cognitive needs: No Hearing needs: No Vision needs: No Female Reproductive History Menstrual Age of Menarche: 12 Questionnaire Thrive Questionnaire Date Thrive assessed: 10/31/22 CINDY-7 AMB Questionnaire CINDY-7 Date CINDY - 7 assessed: 10/31/22 Source: Developed by Drs. Jossue Martinez, Laura Bone, Cruzito Barrera and colleagues, with an educational kareen from [employer]. Review of Systems Const Details: Const Denies chills, Denies fatigue, Denies fever(s), Denies headache(s) and Denies weakness ENT Denies dizziness and Denies headache(s) Card Denies chest pain, Denies lightheadedness, Denies dyspnea and Denies other (Palpitations) Resp Denies cough, Denies dyspnea, Denies wheezing and Denies other ( shortness of breath) GI Reports abdominal pain, Denies melena, Denies hematochezia, Denies change in bowel habits, Denies dyspepsia and Denies nausea Denies hematuria and Denies dysuria Musc Denies abnormal gait, Denies myalgias, Denies arthralgias, Denies numbness and Denies tingling Skin/Breast Denies rash, Denies unusual bruising and Denies wounds Neuro Denies abnormal gait, Denies dizziness, Denies headache(s), Denies memory loss, Denies numbness, Denies Sensory deficit (Neuro), Denies tingling and Denies weakness Endo Denies fatigue Aller/Immun Denies wheezing Physical exam (Primary Care) Vital Signs: Last Vital Signs Temp 98.3 F 01/17/23 13:14 Pulse 72 01/17/23 13:14 Resp 12 01/17/23 13:14 BP 110/64 01/17/23 13:14 Pulse Ox 99 01/17/23 13:14 Oxygen Delivery Method Room Air 01/17/23 13:14 BMI result Body Mass Index 28.0 Tobacco/Smoking Status: Tobacco use Status Tobacco use date assessed 10/31/22 01/17/23 13:06 Patient Tobacco Use Status Never used Tobacco 01/17/23 13:29 e-Cigarette/Vaping Use Never Used 01/17/23 13:29 Thrive Assessment: Date of Thrive Assessment Date Thrive assessed 10/31/22 01/17/23 13:06 Const Other: General: no acute distress and well developed Nutritional Appearance: well nourished Orientation/consciousness: patient oriented x3 HENMT Head: Yes normocephalic and Yes atraumatic Eyes General: appearance normal, both eyes and all related structures Pupils: Equal, round and reactive pupils present EOM: EOMs intact bilaterally Resp Effort & Inspection: normal respiratory effort Auscultation: clear to auscultation bilaterally Cardio Rate: regular rate Rhythm: regular rhythm Heart sounds: S1 normal heart sound present, S2 normal heart sound present, no gallops, no murmurs and no rubs GI Abdomen is soft, tender suprapubic region, nondistended, active bowel sounds x4 General: Yes no CVA tenderness Back/Spine/Pelvis Back: no CVA tenderness Cervical Spine: cervical ROM normal and No Cervical spine tenderness Thoracic/Lumbar Spine: thoraco-lumbar ROM normal, No pain with thoraco-lumbar ROM, No thoracic spinal tenderness and No lumbar spinal tenderness Extrem General: Yes normal to inspection, No edema and No calf tenderness Skin General: warm and dry. Normal skin color. Normal skin turgor Lesions: no lesions Rashes: no rashes Trauma: no lacerations or abrasions Wounds: no wounds Nails: normal Neuro General: patient oriented x3, gait normal and no focal neuro deficit Cranial nerves: Yes Equal, round and reactive pupils present Cognition (Neuro): normal cognition Gait exam (Neuro): Normal gait present Motor exam (neuro): 5/5 motor strength present throughout Sensory Exam: No Sensory deficit (Neuro) Psych Affect: normal affect Assessment and Plan Assessment & Plan (1) Abdominal pain: Code(s): R10.9 - Unspecified abdominal pain Plan: Likely due to uterine fibroids May take ibuprofen or Tylenol for pain or discomfort Follow-up with gynecology as planned Follow-up with PCP for worsening or new symptoms Verbalized understanding and agreed with treatment plan. Coding Level of Care Code Est Pt Level 4 (60872) Diagnoses Abdominal pain R10.9 Time Spent (min) 30
[2023-01-17 13:14] VITALS: BP 110/64; PULSE 72; RESP 12; TEMP 36.8; O2SAT 99; BMI 28.0
== END 2023-01-17 14:20 | disposition home or self-care (01) ==
PROVIDERS: PCP Hospitalist; Visit Provider Nurse Practitioner Family
DX: R10.9 Unspecified abdominal pain (principal)
CPT/HCPCS: 99214